=== PATIENT | male | born 1965 | race Caucasian/White ===

== ENCOUNTER → 2020-03-09 | Outpatient (CLI) | payer OTHER | LOC: M LABSMTC 11:38 | PROVIDERS: ATTEND Orthopaedic Surgery | DX: Z11.59 Encounter for screening for other viral diseases (principal) ==

== ENCOUNTER → 2020-03-09 | Outpatient (CLI) | payer OTHER ==
--- NOTE | 2020-03-09 22:48 | ECGEPIP ---
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 Electronically Signed on 03-09-2020 22:48:06 EST by Johnny Mcginnis
== END ==
LOC: M EKG 10:49
PROVIDERS: ATTEND Orthopaedic Surgery
DX: M75.112 Incomplete rotator cuff tear or rupture of left shoulder, not specified as traumatic (principal)

== ENCOUNTER 2020-03-16 09:53 | Day surgery (SDC) | payer OTHER ==
[~2020-03-16] VITALS: Ht 167.6 cm; Wt 94.8 kg
[~2020-03-16 09:53] MED LIST: ACET1TAB55 PO; GABA600T4 PO; LIDOCAINE 1% MDV 20ML VIAL SQ PRN; LR 1,000 ML IV ONE; ceFAZolin SOD 2 GM in IV 1 EA IV ONE
[2020-03-16] MEDS ORDERED: fentaNYL 250 MCG/5 ML INJECTION (J3010) As Ordered ONE (11:37)
[2020-03-16] MEDS ORDERED: dexameTHASONE 4 MG/ML 1ML VIAL (J1100 PER 1MG) As Ordered ONE (11:38)
[2020-03-16] MEDS ORDERED: LIDOCAINE 2% 100MG/5ML SDV (FOR ANES.) As Ordered ONE (11:38)
[2020-03-16] MEDS ORDERED: ROCURONIUM BROMIDE 50 MG/5 ML VIAL As Ordered ONE (11:38)
[2020-03-16] MEDS ORDERED: propofoL 200 MG/20 ML VIAL As Ordered ONE (11:38)
[2020-03-16] MEDS ORDERED: ONDANSETRON 4MG/2ML VIAL As Ordered ONE (11:38)
[2020-03-16] MEDS ORDERED: MIDAZOLAM INJ 2MG/2ML VIAL (J2250 PER 1MG) As Ordered ONE (12:34)
[2020-03-16] MEDS ORDERED: EPINEPHrine 1MG/ML INJ 30ML MD-VIAL As Ordered ONE (13:12)
[2020-03-16] MEDS ORDERED: BUPIVACAINE LIPOSOME/PF 1.3% 20ML VIAL (13.3MG/ML)(EXPAREL)(C9290 PER1MG) As Ordered ONE (13:49)
[2020-03-16] MEDS ORDERED: BUPIVACAINE HCL 0.5% 10ML VIAL As Ordered ONE (13:49)
[2020-03-16] MEDS ORDERED: ACETAMINOPHEN 1000MG 100ML IV BTL (OFIRMEV) (J0131 PER 10MG) As Ordered ONE (14:04)
[2020-03-16] MEDS ORDERED: SUGAMMADEX SODIUM 500 MG/5 ML VIAL (BRIDION) As Ordered ONE (14:07)
[2020-03-16] MEDS ORDERED: GLYCOPYRROLATE INJ 0.2 MG/ML 2 ML VIAL As Ordered ONE (14:31)
[2020-03-16] MEDS ORDERED: HYDROmorphone HCL 2 MG/ML 1ML VIAL (J1170) As Ordered ONE (14:58)
[2020-03-16] MEDS ORDERED: oxyCODONE 5MG TAB As Ordered ONE (16:32)
[2020-03-16] MEDS ORDERED: fentaNYL 100 MCG/2 ML INJECTION (J3010) As Ordered ONE (16:33)
[2020-03-16] MEDS ORDERED: fentaNYL 100 MCG/2 ML INJECTION (J3010) IV PRN (16:45)
[2020-03-16] MEDS ORDERED: ONDANSETRON 4MG/2ML VIAL IV PRN (16:45)
[2020-03-16] MEDS ORDERED: oxyCODONE 5MG TAB PO PRN (16:45)
[2020-03-16] MEDS ORDERED: METOCLOPRAMIDE INJ 10MG/2ML VIAL (J2765 PER 1) IV PRN (16:45)
[2020-03-16] MEDS ORDERED: MEPERIDINE INJ 25 MG/ML VIAL (J2175) IV PRN (16:45)
[2020-03-16] MEDS ORDERED: LR 1,000 ML IV SCH ×2 (16:45→17:00)
--- NOTE | 2020-03-16 18:07 | RO ---
OPERATIVE NOTE DATE OF OPERATION: 03/16/2020 PREOPERATIVE DIAGNOSIS: 1. Left shoulder painful biceps tenodesis. 2. Left shoulder impingement. 3. Left shoulder possible labral tear. 4. Left shoulder possible rotator cuff tear. POSTOPERATIVE DIAGNOSIS: 1. Left shoulder painful biceps tenodesis. 2. Left shoulder anterior labral tear. 3. Left shoulder chondromalacia. 4. Left shoulder impingement. PROCEDURE: 1. Left shoulder arthroscopic subacromial decompression including acromioplasty. 2. Left shoulder arthroscopic chondroplasty and labral debridement. 3. Left shoulder revision, biceps tenodesis from an arthroscopic to an open subpectoral biceps tenodesis. SURGEON: Hardeep Arias M.D. CLOSURE: Monocryl and nylon. IMPLANTS: Arthrex partial biceps button x1. PROCEDURE: The patient identified in the preoperative holding area. The left shoulder was marked. He did not want a preoperative nerve block. He was brought to the operating room, placed supine on a well-padded OR table. General anesthesia was induced. Examination under anesthesia revealed 170 degrees of forward flexion, 90 of external rotation, no increased anterior, posterior translation. He was then placed in the right side down lateral decubitus position with an axillary roll and all bony prominences were well padded. Bilateral SCDs for DVT prophylaxis. The left arm was placed into the Arthrex Star sleeve lateral decubitus traction gutierrez in 10 lb of traction. He was secured to the OR table. The left shoulder was prepped and draped in the normal sterile fashion with ChloraPrep. He received appropriate IV antibiotics within one hour of incision. A timeout was performed per hospital protocol. The left shoulder was insufflated with lactated Ringer's. A standard posteromedial portal made with an 11 blade. A 30 degree arthroscope was introduced into the joint. A diagnostic arthroscopy was carried out. So the patient had grade 2 chondromalacia in the humeral head. He had primarily grade 1 in the glenoid but the anterior and inferior glenoid were grade 2. There was some tearing of the anterior labrum. The subscapularis appeared intact. The articular surface of the rotator cuff was in good condition. The long head of the biceps had been cut out of the joint but the suture at the bicipital groove was visible. It was not loose. The suture was passing through the biceps tendon. An anterior working portal through the rotator interval was established, a purple Arthrex cannula placed. A shaver was used to perform a debridement of the superior and anterior labrum, a chondroplasty of the anterior glenoid. Arthroscopy portals were then switched and I performed a chondroplasty of the posterior humeral head. The subscapularis appeared intact. There was no liftoff doing the posterior labral push maneuver. The TIT[employer] Tech grasper was used to grasp the suture from the original surgery and this was removed. The long head of the biceps that was previously visualized then withdrew distally out of the joint. No remaining adhesions were seen. An accessory superolateral portal had been established for improved visualization purposes. Once that suture had been removed, the biceps was no long visible. Attention was turned back to the subscapularis. There was some hyperemic synovial tissue and capsule between the subscap and the humeral head and that was debrided with a shaver but there was no tearing of the subscap and there was no liftoff doing the posterior labral push maneuver. The shoulder was irrigated and drained. We then proceeded with an open biceps tenodesis, incision made with a 15 blade just lateral to the axilla. Dissection through subcutaneous fat down to the deep fascia which was carefully opened with cautery. The long head of the biceps was identified and dissected out with a right-angle clamp. I confirmed visually the muscle tendon junction and then proximally the tendon itself traveling in the groove. So when I went to grasp the tendon and retrieve it out of the incision, it would not budge. Blunt finger dissection proximally along the bicipital groove revealed that it was still attached and had scarred into bone. I attempted to free this up with a switching stick and with blunt finger dissection. I was able to gain some length on the tendon but I could not get it to release fully. At this point, if the tendon was left alone, he would likely have a Abe. I felt that it was too high a risk to cause damage to surrounding soft tissue structures to blindly cut the tendon. I therefore placed long [place] retractors proximally along the groove and passed a Ryegate drain around the tendon. I then tried to pull distally, get as much length as possible. Then the tendon was released proximally with a 15 blade. There was still some stump of tendon attached to the groove but I had sufficient length for a tenodesis. The Arthrex proximal biceps kit was opened, the FiberLoop used to place a running locking whipstitch. Excess tendon was trimmed and discarded. Sutures were loaded through the biceps button and the proposed drill holes marked with cautery to restore the normal resting tension. A unicortical drill hole was drilled with a spade-tip drill bit, irrigation used to remove bony debris. The button was passed through the drill hole on the easement worker, sutures were toggled, this flipped the button and docked the tendon along the groove nicely. A curved free needle was used one limb of suture back through the tendon. Knots were tied by hand to lock the construct in place. This very nicely restored the resting tension of the long head of biceps. The incision was reirrigated and then the deep fascia closed with 2-0 Vicryl followed by a 2-0 Vicryl subcuticular closure, running Monocryl and at the end of the case, Steri-Strips were placed. The arthroscope was now placed into the subacromial space and via a lateral working portal, I performed a bursectomy. The CA ligament was partially released and there was a fairly large subacromial spur so a bur was used to perform a formal acromioplasty, turning this into a type 1 morphology. There was minimal bursal fraying of the supraspinatus. A very gentle debridement with the shaver was performed. The shaver was also used to remove all bony debris from the acromioplasty. I was unable to visualize any portion of the long head of the biceps at the far anterior aspect. So the shoulder was irrigated and drained. Portals were closed with nylon suture. I injected 60 mL of a solution that included 20 mL of Exparel, 20 mL of 0.5% Marcaine without epinephrine and 20 mL of normal saline. This was injected with a 22 gauge needle into the biceps tenodesis incision, all the subacromial incisions and into the subacromial space. A bulky sterile dressing was applied. He was then placed into a sling. At the time of this dictation, the patient is about to be extubated and transferred to the PACU. PLAN: He will start physical therapy in 1-2 weeks.
[2020-03-16 18:45] VITALS: BP 132/77
== END 2020-03-16 19:15 | disposition home or self-care (01) ==
LOC: M SDC 09:53
PROVIDERS: ATTEND Orthopaedic Surgery
DX: M75.21 Bicipital tendinitis, right shoulder (principal); S43.492A Other sprain of left shoulder joint, initial encounter; M94.212 Chondromalacia, left shoulder; M75.42 Impingement syndrome of left shoulder; Z53.33 Arthroscopic surgical procedure converted to open procedure; G47.33 Obstructive sleep apnea (adult) (pediatric); R06.83 Snoring; X58.XXXA Exposure to other specified factors, initial encounter; Y93.9 Activity, unspecified; Y92.9 Unspecified place or not applicable; Y99.9 Unspecified external cause status
CPT/HCPCS: 23430; 29823; 29826; 96374; C1713; C9290; J0131; J0690; J1100; J1170; J2250; J2405; J3010

== ENCOUNTER → 2020-06-02 | Outpatient (CLI) | payer OTHER ==
[~2020-06-02] MED LIST changes: -LIDOCAINE 1% MDV 20ML VIAL SQ PRN; -LR 1,000 ML IV ONE; -ceFAZolin SOD 2 GM in IV 1 EA IV ONE
[2020-06-02 10:44] LABS: PLATELET COUNT, AUTOMATED 185 10^3/uL (150-450)
[2020-06-02 10:53] LABS: INR 1.02; PROTHROMBIN TIME 13.6 SECONDS (12.5-14.3)
[2020-06-02 10:54] LABS: PARTIAL THROMBOPLASTIN TIME 28.4 SECONDS (24.2-38.5)
[2020-06-02 11:01] LABS: COLLAGEN EPINEPHRINE 105 SECONDS (74-162)
== END ==
LOC: M LAB 10:14
PROVIDERS: ATTEND Physician Assistant
DX: M47.27 Other spondylosis with radiculopathy, lumbosacral region (principal)

== ENCOUNTER → 2020-07-19 | Outpatient (CLI) | payer OTHER ==
[~2020-07-19] MED LIST changes: +ISOVUE-300 61% 50ML VIAL As Ordered ONE; +PROHANCE 279.3MG/ML 5ML VIAL As Ordered ONE
--- NOTE | 2020-07-19 11:58 | REP ---
INDICATION: PAIN IN LEFT SHOULDER. Rule out retear. COMPARISON: None. TECHNIQUE: The injection procedure is performed and dictated separately. Pre and post intra-articular gadolinium enhanced saline injected imaging is acquired. Imaging planes include axial, oblique coronal, oblique sagittal and ABER projection images. T1 and T2-weighted scans are included with and without fat saturation. FINDINGS: There is a metallic field susceptibility artifact in the proximal humeral diaphysis consistent with biceps tendon transfer. There is an orthopedic fixation device pin tract in the humeral head. Cortical and medullary bone signal intensity are otherwise normal. There is osteoarthritic spurring at the inferior articular margin of the humeral head and early spurring is seen at the inferior margin of the glenoid. This consistent with osteoarthritis. The acromioclavicular joint is normally aligned. The AC joint appears diastatic suggesting previous clavicle resection. There is a moderate pre-injection subacromial subdeltoid bursal effusion. There is advanced tendinosis change in the distal supraspinatus tendon with swelling and increased signal intensity on T1 weighted scans. Some increased signal intensity is seen on T2 weighted scans consistent with partial thickness synovial surface lesion in the supraspinatus. The infraspinatus and subscapularis tendons appear intact on pre in checked imaging. On axial images the biceps tendon appears to be in the bony bicipital groove. On 3D w imaging there is multiple micrometallic artifact about the anterosuperior aspect of the shoulder articulation consistent with postoperative change. There is good filling and enhancement of the glenohumeral articulation on post injection imaging. On T1 weighted scans with fat saturation post injection, there is no evidence of full-thickness rotator cuff tear. There is some anterior injection artifact in the deltoid musculature. No superior labral tear is seen. ABER images show no evidence of anterior labral disruption. IMPRESSION: No evidence of full-thickness supraspinatus cuff tear. There is evidence of partial thickness cuff lesion in the distal supraspinatus, synovial surface on pre and post injection imaging. No labral tear is seen. Postoperative changes as above. Subacromial subdeltoid bursal effusion. Osteoarthritic glenohumeral joint spurring. <Electronically signed by Suleiman Rhodes > 07/19/20 [id number]
--- NOTE | 2020-07-19 14:10 | REP ---
INDICATION: PAIN IN LEFT SHOULDER. COMPARISON: None TECHNIQUE: The procedure was performed by JARED Saez, under the direct supervision of Dr. Rhodes. The benefits and risks of the procedure were explained to the patient, and an informed consent was obtained. Directly prior to the start of the procedure, a formal time-out was completed in the procedure room. The left glenohumeral joint space was localized using fluoroscopic guidance. The skin was prepped and draped in a sterile fashion. Approximately 5 mL of 1% Lidocaine 10 mg/ml was used as a local anesthetic. Using fluoroscopic guidance, a #22 gauge spinal needle was inserted and advanced into the left glenohumeral joint space. Approximately 1 mL of Isovue 300 was injected to verify placement. Twelve mL of a solution containing 20 mL of sterile saline and 0.15 mL of ProHance was injected into the joint space. The needle was removed and the patient was taken to MRI for post procedural imaging. FINDINGS: The patient tolerated the procedure well and there were no immediate complications. IMPRESSION: Fluoroscopic guided MRI arthrogram injection. 0.3 minutes of fluoroscopy time was utilized for this procedure. Some fluoroscopic images are performed with last image hold technology. These images require no additional radiation. <Electronically signed by Ryann Saenz > 07/19/20 [id number] <Electronically signed by Suleiman Rhodes > 07/19/20 [id number]
== END ==
LOC: M RADPRO 06:43
PROVIDERS: ATTEND Physician Assistant
DX: M25.512 Pain in left shoulder (principal); Z96.7 Presence of other bone and tendon implants
CPT/HCPCS: 23350; 73223; 77002; A9576; Q9967

== ENCOUNTER → 2020-09-10 | Outpatient (CLI) | payer OTHER ==
[~2020-09-10] MED LIST changes: -ISOVUE-300 61% 50ML VIAL As Ordered ONE; -PROHANCE 279.3MG/ML 5ML VIAL As Ordered ONE
--- NOTE | 2020-09-10 13:52 | REPVR ---
PROCEDURE INFORMATION: Exam: MR Lumbar Spine Without Contrast Exam date and time: 09/10/2020 10:23 AM Age: 54 years old Clinical indication: Low back pain; Additional info: Spondylosis, radiculopathy TECHNIQUE: Imaging protocol: Multiplanar magnetic resonance images of the lumbar spine without intravenous contrast. COMPARISON: No relevant prior studies available. FINDINGS: Vertebrae: Vertebral body heights normal. There is disc desiccation and disc height loss at L2-L3 through L4-L5. Vertebral body marrow signal is unremarkable. Spinal cord: Conus terminates at L1 and appears normal in signal intensity without intrinsic or extrinsic lesion. L1-L2: There is no significant disc bulge. There is mild facet degeneration. There is no significant spinal stenosis. There is no significant neural foraminal narrowing. L2-L3: There is mild disc bulge. There is mild facet degeneration. There is no significant spinal stenosis. There is no significant neural foraminal narrowing. L3-L4: There is mild disc bulge. There is left foraminal and extraforaminal approximately 3.6 mm disc protrusion which contacts the exiting L3 nerve root at the lateral aspect of foramen and extraforaminal region causing posterior displacement of the nerve root. Correlate for radiculopathy. There is mild facet degeneration. There is no significant spinal stenosis. There is no significant right neural foraminal narrowing. L4-L5: There is mild disc bulge. There is mild facet degeneration. There is no significant spinal stenosis. There is no significant neural foraminal narrowing. L5-S1: There is no significant disc bulge. There is mild facet degeneration. There is no significant spinal stenosis. There is no significant neural foraminal narrowing. Soft tissues: Unremarkable. IMPRESSION: L3-L4 shows left foraminal and extraforaminal protrusion which may compress the L3 nerve root and correlate clinically. Electronically signed by: Bita Huerta On 09/10/2020 13:52:15 PM
== END ==
LOC: M RAD 09:09
PROVIDERS: ATTEND Physician Assistant
DX: M47.27 Other spondylosis with radiculopathy, lumbosacral region (principal); M51.26 Other intervertebral disc displacement, lumbar region